=== PATIENT | female | born 1970 | race Caucasian/White ===

== ENCOUNTER 2017-03-23 08:04 | Day surgery (SDC) | payer OTHER ==
[~2017-03-23] VITALS: Ht 165.1 cm; Wt 74.8 kg
[2017-03-23] MEDS ORDERED: BUPIVACAINE-MPF 0.25% 30 ML VIAL INJ ONE ×2 (11:55→11:58)
[2017-03-23] MEDS ORDERED: LIDOCAINE MPF 1% - **ER/OR** 10 MG/ML VIAL ONE (11:55)
[2017-03-23] MEDS ORDERED: MORPHINE SULFATE 4 MG/ML SYR ONE (12:01)
[2017-03-23] MEDS ORDERED: MIDAZOLAM 2 MG/2 ML VIAL ONE (12:01)
[2017-03-23] MEDS ORDERED: fentaNYL 0.05 MG/ML VIAL ONE (12:01)
[2017-03-23] MEDS ORDERED: MIDAZOLAM 2 MG/2 ML VIAL IV ONE ×2 (12:20)
[2017-03-23] MEDS ORDERED: MORPHINE SULFATE 2 MG/ML SYR IVP PRN ×3 (12:20→13:35)
[2017-03-23] MEDS ORDERED: ONDANSETRON 4 MG/2 ML VIAL IVP PRN (12:20)
[2017-03-23] MEDS ORDERED: MORPHINE SULFATE 4 MG/ML SYR IVP PRN ×4 (12:20)
[2017-03-23] MEDS ORDERED: MORPHINE SULFATE 4 MG/ML SYR IV PRN (13:35)
[2017-03-23] MEDS ORDERED: ONDANSETRON 4 MG/2 ML VIAL IV PRN (13:35)
[2017-03-23] MEDS ORDERED: HYDROcodone/APAP 5/325 MG 1 TAB TAB PO PRN (13:35)
[2017-03-23] MEDS ORDERED: HYDROmorphone PFS 2 MG/ML SYR IVP PRN (13:35)
== END 2017-03-23 14:05 | disposition home or self-care (01) ==
LOC: MDS 08:04 → MMU 08:05 → MDS 14:05
PROVIDERS: ATTEND Surgery
DX: L98.8 Other specified disorders of the skin and subcutaneous tissue (principal); K21.9 Gastro-esophageal reflux disease without esophagitis; E66.01 Morbid (severe) obesity due to excess calories; Z98.51 Tubal ligation status; Z98.890 Other specified postprocedural states; Z79.899 Other long term (current) drug therapy; Z91.09 Other allergy status, other than to drugs and biological substances
CPT/HCPCS: 11100; 20206; 71045; 88305; 88342; J0690; J2001; J2250; J2270; J3010; J3490; J7060

== ENCOUNTER 2017-04-30 10:42 | Day surgery (SDC) | payer OTHER ==
[~2017-04-30] VITALS: Ht 165.1 cm; Wt 77.1 kg
[2017-04-30] MEDS ORDERED: BUPIVACAINE-MPF 0.25% 30 ML VIAL INJ ONE (12:34)
[2017-04-30] MEDS ORDERED: fentaNYL 0.05 MG/ML VIAL ONE (12:41)
[2017-04-30] MEDS ORDERED: MORPHINE SULFATE 4 MG/ML SYR ONE (12:41)
[2017-04-30] MEDS ORDERED: MIDAZOLAM 2 MG/2 ML VIAL ONE (12:41)
[2017-04-30] MEDS ORDERED: MORPHINE SULFATE 2 MG/ML SYR IVP PRN ×2 (13:10→14:00)
[2017-04-30] MEDS ORDERED: MORPHINE SULFATE 4 MG/ML SYR IVP PRN ×2 (13:10)
[2017-04-30] MEDS ORDERED: MIDAZOLAM 2 MG/2 ML VIAL IV ONE (13:10)
[2017-04-30] MEDS ORDERED: HYDROcodone/APAP 5/325 MG 1 TAB TAB PO PRN (14:00)
[2017-04-30] MEDS ORDERED: MORPHINE SULFATE 4 MG/ML SYR IV PRN (14:00)
[2017-04-30] MEDS ORDERED: ONDANSETRON 4 MG/2 ML VIAL IV PRN (14:00)
[2017-04-30] MEDS ORDERED: HYDROmorphone PFS 2 MG/ML SYR IVP PRN (14:00)
== END 2017-04-30 15:15 | disposition home or self-care (01) ==
LOC: MDS 10:42 → MMU 10:43 → MDS 15:15
PROVIDERS: ATTEND Surgery
DX: D36.7 Benign neoplasm of other specified sites (principal); K21.9 Gastro-esophageal reflux disease without esophagitis; E66.01 Morbid (severe) obesity due to excess calories; Z98.51 Tubal ligation status; Z91.09 Other allergy status, other than to drugs and biological substances
CPT/HCPCS: 24071; 71045; 88305; 93005; J0690; J2250; J2270; J3010; J3490; J7060; J7120